=== PATIENT | female | born 1990 | race Caucasian/White ===

== ENCOUNTER 2019-09-27 18:00 | Inpatient (IN) | payer BC ==
[~2019-09-27 18:00] MED LIST: Bupivacaine/Epinephrine 0.25% 30 ML VIAL ONE
[2019-09-27] MEDS ORDERED: Acetaminophen 500 MG TAB PO PRN (19:36)
[2019-09-27] MEDS ORDERED: Promethazine HCl 25 MG/ML VIAL IM PRN (19:36)
[2019-09-27] MEDS ORDERED: Diphenoxylate HCl/Atropine Tablet PO PRN (19:36)
[2019-09-27] MEDS ORDERED: hydrALAZINE 20 MG/ML VIAL SLOW IVP PRN (19:36)
[2019-09-27] MEDS ORDERED: HYDROcodone/Acetaminophen 5/325 mg Tablet PO PRN (19:36)
[2019-09-27] MEDS ORDERED: Ondansetron PF 4 MG/2 ML Vial IVP PRN (19:36)
[2019-09-27] MEDS ORDERED: Misoprostol 200 MCG TAB PR PRN (19:36)
[2019-09-27] MEDS ORDERED: Lidocaine 1% (PF) 30 ML VIAL SC PRN (19:36)
[2019-09-27] MEDS ORDERED: Ibuprofen 800 MG TAB PO PRN (19:36)
[2019-09-27] MEDS ORDERED: NS / Oxytocin 40 units/1000ml 1,000 ML IV PRN (19:36)
[2019-09-27] MEDS ORDERED: Carboprost 250 MCG/ML AMP IM PRN (19:36)
[2019-09-27] MEDS ORDERED: Methylergonovine 0.2 MG/ML VIAL IM PRN (19:36)
[2019-09-27] MEDS ORDERED: Butorphanol Tartrate 1 MG/ML VIAL SLOW IVP PRN (19:36)
[2019-09-27 19:55] VITALS: BMI 36.0
[2019-09-27 20:03] LABS: Mean Corpuscular HGB CONC 34.3 g/dL (32.0-36.0); Mean Corpuscular Hemoglobin 30.7 pg (27.0-31.0); Mean Corpuscular Volume 89.3 fL (78.0-98.0); Mean Platelet Volume 9.4 fL (7.4-10.4); Platelet Count 179 thou/uL (130-400); RBC Distribution Width 12.7 % (11.5-14.5); Red Blood Cell (RBC) Count 3.91 mill/uL (4.20-5.40); White Blood Cell (WBC) Count 9.2 thou/uL (4.8-10.8)
[2019-09-27] MEDS: Misoprostol 100 MCG TAB VAG SCH ×2 (20:30→23:45)
[2019-09-27] MEDS: Lactated Ringer's 1,000 ML IV SCH (20:36)
--- NOTE | 2019-09-27 20:40 | PDOC.LDHP ---
Labor and Delivery H&P Chief complaint: scheduled induction HPI: 29 yo @ 38w0d by LMP c/w 8 week CRL who presents for IOL due to A2DM, on Metformin 1000 mg QHS. EFW last 96% (3800 g) @ 37 weeks. Current gestational age (weeks): 38 Dating criteria: last menstrual period Grav: 1 Para: 0 Current complications: gestational diabetes Abnormal US findings: No Past Medical History: ADHD Current medications: pre-joe vitamins Previous surgical history: other (Breast augmentation) Allergies/Adverse Reactions: Allergies Allergy/AdvReac Type Severity Reaction Status Date / Time No Known Allergies Allergy Verified 09/27/19 19:57 Social history: none - Physical Exam Vital signs reviewed and normal: yes General: NAD Heart: RRR Lungs: nonlabored breathing Abdomen: gravid Extremeties: no edema FHT: category 1 (120s, mod chris, +accels, no decels) [place] contractions every: irregualr ctx - Vaginal Exam cm dilated: 0 Effacement: 0% Station: -3 - OB Labs Blood type: O RH: positive Antibody Screen: negative HIV: negative RPR: negative HEPSAg: negative 1 hour GCT: positive 3 hour GTT: positive GBS: negative Urine drug screen: negative Rubella: immune Additional Labs: NIPT and msAFP wnl - Assessment 29 yo G1 @ 38w0d IOL for A2DM Possible macrocomia - Plan Plan: admit to L&D, cervical ripening, informed consent obtained, anesthesia consult for pain management
[2019-09-27 20:42] LABS: Syphilis Antibody Nonreactive (Nonreactive); Syphilis Antibody Index 0.05 S/CO (<1.00 Non-Reactive)
[2019-09-27 22:43] LABS: HBSAg Index 0.24 S/CO (0-0.99); HIV (1/2) Antibody/Antigen Non-Reactive (NonReactive); HIV 1/2 INDEX 0.11 S/CO (<1.00); Hep B Surf Ag Non-Reactive S/CO (NonReactive)
[2019-09-28] MEDS: Lactated Ringer's 1,000 ML IV SCH ×3 (03:07→14:28)
[2019-09-28] MEDS: Misoprostol 100 MCG TAB VAG SCH ×2 (03:24→07:40)
--- NOTE | 2019-09-28 08:26 | PDOC.LDPN ---
Labor & Delivery Progress Note - Subjective Subjective: comfortable - Objective Vital signs reviewed and normal: yes General: NAD Uterine fundus: non tender Dilation: 1 Effacement: 50% Station: -2 FHT: category 2 (120s, mod chris, +accels, on prolonge decel resolved with position changes) [place] contractions every: q2-3 min when assessing - Assessment (1) 38 weeks gestation of Code(s): Z3A.38 - 38 WEEKS GESTATION OF Current Visit: Yes Status : Acute (2) Gestational diabetes Code(s): O24.419 - GESTATIONAL DIABETES MELLITUS IN , UNSP CONTROL Current Visit: Yes Status: Acute (3) Encounter for induction of labor Code(s): Z34.90 - ENCNTR FOR SUPRVSN OF NORMAL , UNSP, UNSP TRIMESTER Current Visit: Yes Status: Acute (4) macrosomia Code(s): O36.60X0 - MATERNAL CARE FOR EXCESS GROWTH, UNSP TRIMESTER, UNSP Current Visit: Yes Status: Acute -: Cytotec #4 placed this morning Continue cervical ripening protocol and start pitocin after completes cytotec
[2019-09-28] MEDS: NS w/ Oxytocin 10 units 500 ML IV SCH (11:14)
[2019-09-28] MEDS ORDERED: Terbutaline Sulfate 1 MG/ML VIAL ONE (13:29)
--- NOTE | 2019-09-28 13:44 | PDOC.LDPN ---
Labor & Delivery Progress Note - Subjective Subjective: other (feels some cramping ) - Objective Vital signs reviewed and normal: yes General: NAD Uterine fundus: non tender Dilation: 2 Effacement: 50% Station: -2 FHT: category 2 (150s, mod chris, +accels now- pt had prolonged decel with romy to 70s with resolution with interventions ) AROM: clear fluid IUPC placed: yes FSE placed: yes Resuscitative measures: maternal oxygen, maternal IV fluids, maternal position change (left lateral position ) - Assessment (1) 38 weeks gestation of Code(s): Z3A.38 - 38 WEEKS GESTATION OF Current Visit: Yes Status : Acute (2) Gestational diabetes Code(s): O24.419 - GESTATIONAL DIABETES MELLITUS IN , UNSP CONTROL Current Visit: Yes Status: Acute (3) Encounter for induction of labor Code(s): Z34.90 - ENCNTR FOR SUPRVSN OF NORMAL , UNSP, UNSP TRIMESTER Current Visit: Yes Status: Acute (4) macrosomia Code(s): O36.60X0 - MATERNAL CARE FOR EXCESS GROWTH, UNSP TRIMESTER, UNSP Current Visit: Yes Status: Acute Plan: resuscitative measures (IVF bolus, O2, position changes and terbutaline given. ) -: Internal monitors placed. Closely monitor.
[2019-09-28] MEDS ORDERED: Fentanyl 4 mcg/Bup 0.1% Cadd 100 ML ONE (13:46)
[2019-09-28] MEDS ORDERED: diphenhydrAMINE 50 MG/ML VIAL IVP PRN ×2 (13:53→18:51)
[2019-09-28] MEDS ORDERED: Lactated Ringer's 500 ML IV PRN (13:53)
[2019-09-28] MEDS ORDERED: Acetaminophen 325 MG TAB PO PRN (13:53)
[2019-09-28] MEDS ORDERED: Ondansetron PF 4 MG/2 ML Vial IVP PRN ×2 (13:53→18:51)
[2019-09-28] MEDS ORDERED: Promethazine HCl 25 MG/ML VIAL IM PRN ×2 (13:53→18:51)
[2019-09-28] MEDS ORDERED: Naloxone HCl 0.4 mg/ml Vial IVP PRN ×4 (13:53→18:51)
[2019-09-28] MEDS ORDERED: EPHEDRINE 25 MG/5 ML SYRINGE SLOW IVP PRN (13:53)
[2019-09-28] MEDS ORDERED: Fentanyl 4 mcg/Bupivacaine 0.1% Cassette 100 ML EPIDURAL SCH (14:00)
[2019-09-28] MEDS ORDERED: Communication Order-Pharmacy FS SCH ×2 (14:00→19:00)
--- NOTE | 2019-09-28 17:58 | PDOC.LDPN ---
Labor & Delivery Progress Note - Subjective Subjective: comfortable - Objective Vital signs reviewed and normal: yes General: NAD Uterine fundus: non tender Dilation: 2 Effacement: 50% Station: -2 FHT: category 2 (130s, mod chris, +accels, prolonged decel again to 70s. ) [place] contractions every: q2-5 min Resuscitative measures: maternal oxygen, maternal IV fluids, maternal position change - Assessment (1) 38 weeks gestation of Code(s): Z3A.38 - 38 WEEKS GESTATION OF Current Visit: Yes Status : Acute (2) Gestational diabetes Code(s): O24.419 - GESTATIONAL DIABETES MELLITUS IN , UNSP CONTROL Current Visit: Yes Status: Acute (3) Encounter for induction of labor Code(s): Z34.90 - ENCNTR FOR SUPRVSN OF NORMAL , UNSP, UNSP TRIMESTER Current Visit: Yes Status: Acute (4) macrosomia Code(s): O36.60X0 - MATERNAL CARE FOR EXCESS GROWTH, UNSP TRIMESTER, UNSP Current Visit: Yes Status: Acute -: Reviewed FHTs with pt. Unable to obtain adequate ctx and fetus having periodic prolonged decels to 70s. Pitocin was d/c'ed and she has had terbutaline x 1 earlier today. SVE is unchanged for 5 hours despite pitocin augmentation and due to intolerance to adequate pattern, recommended a PLTCS. Pt amenable. To OR.
[2019-09-28] MEDS ORDERED: CEFAZOLIN 2 GM in Premix Bag 1 BAG IVPB SCH (18:00)
[2019-09-28] MEDS ORDERED: PHENYLEPHRINE-NS 100 MCG/ML 10 ML SYRINGE ONE (18:08)
[2019-09-28] MEDS ORDERED: MORPHINE 5 MG/10 ML PF VIAL ONE (18:08)
[2019-09-28] MEDS ORDERED: EPINEPHrine 1 MG/ML AMP ONE (18:08)
[2019-09-28] MEDS ORDERED: Ketorolac Tromethamine 30 MG/ML VIAL ONE ×2 (18:08→21:06)
[2019-09-28] MEDS ORDERED: Ondansetron PF 4 MG/2 ML Vial ONE (18:08)
[2019-09-28] MEDS ORDERED: Oxytocin 10 UNITS/ML VIAL ONE ×2 (18:08→19:03)
[2019-09-28] MEDS ORDERED: EPHEDRINE 25 MG/5 ML SYRINGE ONE (18:09)
[2019-09-28] MEDS ORDERED: Lidocaine 2% MPF 10 ML AMP (For Epidural Use) ONE (18:09)
[2019-09-28] MEDS ORDERED: Azithromycin 500 MG VIAL ONE (18:09)
[2019-09-28] MEDS ORDERED: Azithromycin 500 MG in Sodium Chloride 0.9% 250 ML 250 ML IVPB SCH (18:45)
[2019-09-28] MEDS ORDERED: HYDROmorphone 2 MG/ML VIAL SLOW IVP PRN (18:51)
[2019-09-28] MEDS ORDERED: Meperidine HCl/PF 25 MG/ML VIAL SLOW IVP PRN (18:51)
[2019-09-28] MEDS ORDERED: Naloxone HCl 0.4 mg/ml Vial IV PRN (18:51)
[2019-09-28] MEDS ORDERED: Ondansetron HCl/PF 4 MG/2 ML Vial IVP PRN (18:51)
[2019-09-28] MEDS ORDERED: L&D-Morphine 4 MG/ML VIAL SLOW IVP PRN (18:51)
[2019-09-28] MEDS ORDERED: Promethazine HCl 25 MG SUPP PR PRN (18:51)
[2019-09-28] MEDS ORDERED: Ketorolac Tromethamine 30 MG/ML VIAL IVP SCH (19:00)
--- NOTE | 2019-09-28 19:14 | PDOC.OPDEL ---
OB Operative/Delivery Note Delivery Dr/Surgeon: Malia Gore DO Assist: Anuradha Mistry MD Pre-Delivery Diagnosis: medically indicated induction Procedure/Post Delivery Dx: primary low transverse CS Weeks gestation: 38 Anesthesia: epidural - Findings A Sex: male - 1 min: 9 - 5 min: 9 - Additional Findings/Plan Placenta delivered: spontaneous findings: low transverse hysterotomy without extension, normal uterus, normal tubes, normal ovaries Estimated blood loss: QBL 575 cc Compilations/Other Findings: Fetus in OP position Clear amniotic fluid Normal appearing placenta Post delivery plan: routine recovery
[2019-09-28] MEDS ORDERED: hydrALAZINE 20 MG/ML VIAL SLOW IVP PRN (20:26)
[2019-09-28] MEDS ORDERED: Lanolin Ointment 7 GM TUBE TOP PRN (20:26)
--- NOTE | 2019-09-28 20:44 | OP ---
DATE OF PROCEDURE: 09/28/2019 I was present and scrubbed for the entirety of the with primary surgeon, Dr. Malia Gore. Job ID: [id number]
[2019-09-28] MEDS ORDERED: FLU VACC QS2019-20(6MOS UP)/PF 60 MCG/0.5 ML SYRINGE IM ONE (21:00)
[2019-09-28] MEDS: Morphine 2 MG/ML SYRINGE SLOW IVP PRN (23:10)
[2019-09-28] MEDS: Ibuprofen 800 MG TAB PO SCH (23:12)
[2019-09-29] MEDS: Morphine 2 MG/ML SYRINGE SLOW IVP PRN (00:17)
[2019-09-29] MEDS: Ferrous Sulfate 325 MG TAB PO SCH ×2 (00:19→09:11)
[2019-09-29] MEDS: Ketorolac Tromethamine 30 MG/ML VIAL IVP PRN ×2 (02:03→12:47)
[2019-09-29] MEDS: Lactated Ringer's 1,000 ML IV SCH ×2 (06:00→11:24)
[2019-09-29] MEDS: Ibuprofen 800 MG TAB PO SCH ×2 (06:01→18:28)
[2019-09-29] MEDS: NS w/ Oxytocin 10 units 500 ML IV SCH (06:02)
[2019-09-29 06:31] LABS: #Lymphocytes 1.6 thou/uL (1.20-3.40); #Monocytes 0.6 thou/uL (0.11-0.59); #Neutrophils 5.9 thou/uL (1.40-6.50); %Basophils 0.4 % (0.0-1.0); %Eosinophils 0.6 % (0.0-10.0); %Lymphocytes 19.4 % (21.0-51.0); %Monocytes 7.1 % (0.0-10.0); %Neutrophils 72.5 % (42.0-75.0); Hemoglobin 10.7 g/dL (12.0-16.0); Mean Corpuscular HGB CONC 34.1 g/dL (32.0-36.0); Mean Corpuscular Hemoglobin 30.6 pg (27.0-31.0); Mean Corpuscular Volume 89.8 fL (78.0-98.0); Mean Platelet Volume 9.5 fL (7.4-10.4); Platelet Count 134 thou/uL (130-400); RBC Distribution Width 12.8 % (11.5-14.5); White Blood Cell (WBC) Count 8.1 thou/uL (4.8-10.8)
--- NOTE | 2019-09-29 08:08 | PDOC.PP ---
Post Progress Note Post Day #: 1 Subjective: Minimal - moderate pain. Moderate lochia. Valenzuela in place. Passing flatus. Breast feeding. PO intake tolerated: yes Flatus: yes Ambulation: no Vital Signs (12 hours) Pulse Ox 09/28/19 22:00 98 Weight Weight 230 lb - Physical Examination General: NAD Cardiovascular: RRR Respiratory: non-labored breathing Abdominal: no distention, appropriately TTP Fundus firm & at: below umbilicus Extremities: negative homans (B) Deviation from normal: Dressing c/d/ i Neurological: no gross focal deficits Psychiatric: A&Ox3, normal affect Result Diagrams: 09/29/19 06:06 Additional Labs: Post Labs Blood Type O POSITIVE 09/27/19 20:10 Hep Bs Antigen Non-Reactive S/CO (NonReactive) 09/27/19 19:54 (1) 38 weeks gestation of Code(s): Z3A.38 - 38 WEEKS GESTATION OF Status: Resolved (2) Gestational diabetes Code(s): O24.419 - GESTATIONAL DIABETES MELLITUS IN , UNSP CONTROL Status: Resolved (3) Encounter for induction of labor Code(s): Z34.90 - ENCNTR FOR SUPRVSN OF NORMAL , UNSP, UNSP TRIMESTER Status: Resolved (4) macrosomia Code(s): O36.60X0 - MATERNAL CARE FOR EXCESS GROWTH, UNSP TRIMESTER, UNSP Status: Resolved (5) delivery delivered Code(s): O82 - ENCOUNTER FOR DELIVERY WITHOUT INDICATION Status: Acute (6) Anemia Code(s): D64.9 - ANEMIA, UNSPECIFIED Status: Acute Qualifiers: Other causes of anemia: acute posthemorrhagic - Assessment/Plan PPD1 VSSAF Anemia appropriate for post op . Fe supplement. Continue post op care Plan for d/c 1-2 days
[2019-09-29] MEDS: Prenatal Vitamin 1 TAB PO SCH (11:08)
[2019-09-29] MEDS: HYDROcodone/Acetaminophen 5/325 mg Tablet PO PRN ×3 (11:09→23:35)
[2019-09-29] MEDS: Misoprostol 100 MCG TAB VAG SCH ×2 (14:35→14:36)
[2019-09-29] MEDS: Simethicone Chewable 80 MG TAB PO PRN (20:31)
[2019-09-30] MEDS: Misoprostol 100 MCG TAB VAG SCH (00:21)
[2019-09-30] MEDS: Lactated Ringer's 1,000 ML IV SCH (00:21)
[2019-09-30] MEDS: Ferrous Sulfate 325 MG TAB PO SCH ×2 (00:21→07:58)
[2019-09-30] MEDS: Ibuprofen 800 MG TAB PO SCH ×4 (00:41→16:48)
--- NOTE | 2019-09-30 08:03 | PDOC.PP ---
Post Progress Note Post Day #: 2 Subjective: Pain improved with meds. No concerns. Lochia moderate. breast feeding. PO intake tolerated: yes Flatus: yes Ambulation: yes Vital Signs (12 hours) Temp Pulse Resp BP Pulse Ox 09/30/19 04:30 98.2 F 70 16 105/60 09/29/19 23:00 98.0 F 77 16 120/59 L 09/29/19 20:03 98.6 F 76 14 123/64 96 Weight Weight 230 lb - Physical Examination General: NAD Cardiovascular: RRR Respiratory: non-labored breathing Abdominal: no distention, appropriately TTP Fundus firm & at: below umbilicus Extremities: negative homans (B) Skin: CS incision dry & intact, no rash Neurological: no gross focal deficits Psychiatric: A&Ox3, normal affect Result Diagrams: 09/29/19 06:06 Additional Labs: Post Labs Blood Type O POSITIVE 09/27/19 20:10 Hep Bs Antigen Non-Reactive S/CO (NonReactive) 09/27/19 19:54 (1) 38 weeks gestation of Code(s): Z3A.38 - 38 WEEKS GESTATION OF Status: Resolved (2) Gestational diabetes Code(s): O24.419 - GESTATIONAL DIABETES MELLITUS IN , UNSP CONTROL Status: Resolved (3) Encounter for induction of labor Code(s): Z34.90 - ENCNTR FOR SUPRVSN OF NORMAL , UNSP, UNSP TRIMESTER Status: Resolved (4) macrosomia Code(s): O36.60X0 - MATERNAL CARE FOR EXCESS GROWTH, UNSP TRIMESTER, UNSP Status: Resolved (5) delivery delivered Code(s): O82 - ENCOUNTER FOR DELIVERY WITHOUT INDICATION Status: Acute (6) Anemia Code(s): D64.9 - ANEMIA, UNSPECIFIED Status: Acute Qualifiers: Other causes of anemia: acute posthemorrhagic - Assessment/Plan PPD2 VSSAF Plan for d/c home today if infant ready.
[2019-09-30] MEDS: Prenatal Vitamin 1 TAB PO SCH (11:04)
[2019-09-30] MEDS: HYDROcodone/Acetaminophen 5/325 mg Tablet PO PRN ×2 (11:05→15:20)
[2019-09-30 11:55] VITALS: BP 132/69; TEMP 98.5
[2019-09-30] MEDS: Simethicone Chewable 80 MG TAB PO PRN (12:35)
--- NOTE | 2019-10-02 06:51 | OP ---
DATE OF PROCEDURE: 09/28/2019 PREOPERATIVE DIAGNOSES: 1. 38-week 1-day intrauterine . 2. Gestational diabetes (A2 diabetes). 3. Suspected macrosomia. 4. Induction of labor. 5. intolerance to labor and remote from delivery. POSTOPERATIVE DIAGNOSES: 1. 38-week 1-day intrauterine . 2. Gestational diabetes (A2 diabetes). 3. Suspected macrosomia. 4. Induction of labor. 5. intolerance to labor and remote from delivery. PROCEDURES PERFORMED: Primary low-transverse delivery via Pfannenstiel skin incision. HEATING REPAIR TECHNICIAN: Anuradha Mistry MD COMPLICATIONS: None. ANESTHESIA: Epidural with Duramorph. QUANTITATIVE BLOOD LOSS: * FINDINGS: Viable male infant in cephalic presentation in occiput posterior position, weighing 3750 g. Apgars 9 and 9. Clear amniotic fluid. Normal-appearing uterus, fallopian tubes, and ovaries bilaterally. INDICATIONS FOR THE PROCEDURE: Ms. Amanda Hernandez is a 29-year-old, G1, P0, at 38 weeks and 0 days, who underwent an induction of labor due to an A2 diabetes, concerned for macrosomia. The patient underwent cervical ripening and progressed to 2 cm. She then underwent artificial rupture of membranes with Pitocin induction. The Pitocin had to be discontinued several times. The patient was given terbutaline on one occurrence due to prolonged deceleration related to some contractions and maternal position. The patient was still remote from delivery and had not had any cervical advancement in 5 to 6 hours. Due to remote from delivery and intolerance of adequate labor, a primary delivery was recommended and the patient was amenable. DESCRIPTION OF PROCEDURE: The patient was brought to the operating room. She already had an epidural, which was additionally dosed. She was then placed in supine position with a leftward tilt. A Valenzuela catheter was already in place. She was given Ancef and azithromycin for surgical prophylaxis. Her abdomen was prepped and draped in a sterile fashion. An official time-out was performed. Anesthesia was assessed and proven to be adequate. A Pfannenstiel skin incision was made using the scalpel and carried under the underlying fascia layer. The fascia was incised in the midline using the scalpel and extended bilaterally using Hansen scissors. The superior aspect of the fascial incision was grasped using Landen clamps, tented upward, and dissected free from the underlying rectus abdominis muscles. The same was done to the inferior aspect of the fascial incision. Rectus abdominis muscles were bluntly. Peritoneum was entered bluntly. Peritoneal incision was extended using both sharp and blunt dissection. Isaac O retractor was then placed into the abdomen. A bladder flap was created. A low transverse hysterotomy was made using the scalpel. Hysterotomy was extended using blunt dissection. The amniotic membranes were ruptured during this process noting clear amniotic fluid. Infant was delivered in cephalic presentation in occiput posterior position without difficulty. The cord was clamped and cut. Infant was handed to the waiting neonatology team. Cord blood was obtained. The placenta was delivered spontaneously intact. The uterus was cleared of all clot and debris, and the hysterotomy was closed in a running locking fashion using 1 Monocryl. The pelvis was irrigated and cleared of all clot and debris. The bilateral adnexa were evaluated and normal in appearance. The Isaac O retractor was then removed from the abdomen. The peritoneum was closed in a running fashion using 3-0 chromic. The rectus abdominis muscles were evaluated and hemostatic. The fascia was closed in a running fashion using 0 PDS. The subcutaneous layer was copiously irrigated and hemostatic with use of the Bovie. Subcutaneous layer was closed using 3-0 Vicryl and skin was closed using 4-0 Monocryl and Dermabond. The patient tolerated the procedure well. There were no complications. All counts were correct x3. Job ID: [id number]
== END 2019-09-30 17:30 | disposition home or self-care (01) | DRG 787 ==
LOC: L&D 18:52 → 3SW 09-28 21:54
PROVIDERS: ADMIT Obstetrics & Gynecology; ATTEND Obstetrics & Gynecology
PROC: 10D00Z1 Extraction of Products of Conception, Low, Open Approach (ICD-10-PCS; principal; 2019-09-29)
PROC: 3E033VJ Introduction of Other Hormone into Peripheral Vein, Percutaneous Approach (ICD-10-PCS; 2019-09-29)
DX: O36.63X0 Maternal care for excessive fetal growth, third trimester, not applicable or unspecified (principal); D62 Acute posthemorrhagic anemia; Z37.0 Single live birth; O24.420 Gestational diabetes mellitus in childbirth, diet controlled; Z3A.37 37 weeks gestation of pregnancy; F90.9 Attention-deficit hyperactivity disorder, unspecified type; O99.344 Other mental disorders complicating childbirth; O99.02 Anemia complicating childbirth
CPT/HCPCS: 36415; 36416; 51702; 85025; 85027; 86780; 86850; 86900; 86901; 87340; 87389; J0171; J0456; J0690; J1200; J1885; J2001; J2270; J2274; J2405; J2590; J3105